=== PATIENT | male | born 1995 | race Caucasian/White ===

== ENCOUNTER 2018-04-08 09:04 | Outpatient (CLI) | payer MEDICAID ==
[2018-04-08 09:06] VITALS: BP 149/81
== END 2018-04-08 09:38 | disposition home or self-care (01) ==
LOC: ORTHO 09:04
PROVIDERS: ATTEND Nurse Practitioner Family
DX: S92.324A Nondisplaced fracture of second metatarsal bone, right foot, initial encounter for closed fracture (principal); F17.210 Nicotine dependence, cigarettes, uncomplicated; F12.90 Cannabis use, unspecified, uncomplicated; X58.XXXA Exposure to other specified factors, initial encounter; Y93.89 Activity, other specified; Y92.89 Other specified places as the place of occurrence of the external cause; Y99.8 Other external cause status
CPT/HCPCS: 73630; 99213

== ENCOUNTER 2019-03-21 16:34 | Emergency (ER) | payer MEDICAID ==
[~2019-03-21] VITALS: Ht 175.3 cm; Wt 54.5 kg
[2019-03-21 16:35] VITALS: BP 142/97
[2019-03-21] MEDS ORDERED: ONDA8TAB13 PO (17:41)
== END 2019-03-21 17:50 | disposition home or self-care (01) ==
LOC: ER 16:35
DX: F10.20 Alcohol dependence, uncomplicated (principal); F12.90 Cannabis use, unspecified, uncomplicated; F17.200 Nicotine dependence, unspecified, uncomplicated; Z79.899 Other long term (current) drug therapy; Y90.9 Presence of alcohol in blood, level not specified
CPT/HCPCS: 99283